=== PATIENT | female | born 1985 ===

== ENCOUNTER 2022-07-04 20:14 | Inpatient (IN) ==
[2022-07-04] MEDS ORDERED: miSOPROStoL 25 MCG TABLET PO PRN (21:43)
[2022-07-04] MEDS ORDERED: Oxytocin 30 UNIT/503 ML BAG IVC SCH (21:45)
[2022-07-04] MEDS ORDERED: Naloxone 0.4 MG/ML INJ IVP PRN (22:06)
[2022-07-04] MEDS ORDERED: Metoclopramide 10 MG/2 ML VIAL IVP PRN (22:06)
[2022-07-04] MEDS ORDERED: Azithromycin 500 MG in 0.9 % Sodium Chloride 250 ML IVPB PRN (22:06)
[2022-07-04] MEDS ORDERED: Ondansetron 4 MG/2 ML VIAL IVP PRN (22:06)
[2022-07-04] MEDS ORDERED: Famotidine 20 MG/2 ML VIAL IVP PRN (22:06)
[2022-07-04] MEDS ORDERED: Ringers Solution, Lactated 1,000 ML IVC SCH (22:15)
[2022-07-04 22:36] LABS: Basophils % 0.4 %; Eosinophils # 0.2 K/mcL (0.0-0.6); Eosinophils % 1.9 %; Hematocrit 37.3 % (35.3-44.9); Hemoglobin 12.7 g/dL (11.5-15.4); Immature Granulocytes % 0.8 % (0-4); Lymphocytes # 2.3 K/mcL (0.6-4.6); Mean Corpuscular Hemoglobin 33.3 pg (28.0-33.3); Mean Corpuscular Volume 97.9 fL (83.0-100.0); Mean Platelet Volume 9.5 fL (9.4-12.4); Monocytes # 0.6 K/mcL (0.0-1.3); Monocytes % 5.1 %; Neutrophils # 7.7 K/mcL (1.6-8.9); Platelet Count 304 K/mcL (140-400); Red Blood Count 3.81 M/mcL (3.82-4.97); Red Cell Distribution Width 13.1 % (11.5-14.5); Segmented Neutrophils % 70.8 %; White Blood Count 10.9 K/mcL (4.3-11.1)
[2022-07-04] MEDS ORDERED: Nicotine 21 MG PATCH.TD24 TD SCH (22:45)
[2022-07-04 23:17] LABS: Amphetamine Screen,Urine Negative ng/mL (Cutoff=1000); Barbiturate Screen,Urine Negative ng/mL (Cutoff=200); Benzodiazepines Screen,Urine Negative ng/mL (Cutoff=200); Cannabinoid Screen,Urine Negative ng/mL (Cutoff = 50); Cocaine Screen,Urine Negative ng/mL (Cutoff= 300); Opiate Screen,Urine Negative ng/mL (Cutoff=300); Phencyclidine Screen,Urine Negative ng/mL (Cutoff=25)
[2022-07-05] MEDS ORDERED: EPHEDrine 50 MG/ML VIAL IVP PRN (05:50)
[2022-07-05] MEDS ORDERED: Ropivacaine/PF 0.2% 20 ML VIAL EP ONE (05:50)
[2022-07-05] MEDS ORDERED: *HR* FentaNYL (PF) 100 MCG/2 ML VIAL EP ONE (05:50)
[2022-07-05] MEDS ORDERED: Ropivacaine/PF 0.2% 20 ML VIAL ONE (05:53)
[2022-07-05] MEDS ORDERED: *HR* FentaNYL (PF) 100 MCG/2 ML VIAL ONE (05:53)
[2022-07-05] MEDS ORDERED: Epidural Premix (fent/bupiv) 110 ML EP ONE (05:55)
[2022-07-05] MEDS ORDERED: Epidural Premix (fent/bupiv) 110 ML EP SCH (06:00)
[2022-07-05] MEDS ORDERED: Azithromycin 500 MG in 0.9 % Sodium Chloride 250 ML IVPB PRN (09:00)
[2022-07-05] MEDS ORDERED: CeFAZolin 2,000 MG/120 ML BAG IVPB ONE (09:00)
[2022-07-05] MEDS ORDERED: Ondansetron 4 MG/2 ML VIAL ONE (09:16)
[2022-07-05] MEDS ORDERED: Ketorolac 30 MG/ML VIAL ONE (09:32)
[2022-07-05] MEDS ORDERED: *HR* Morphine Sulfate/PF 10 MG/10 ML AMPUL ONE (09:39)
[2022-07-05] MEDS ORDERED: EPHEDrine 50 MG/ML VIAL ONE (09:59)
[2022-07-05] MEDS ORDERED: Acetaminophen IV 1,000 MG/100 ML BAG IVPB ONE (10:00)
[2022-07-05] MEDS ORDERED: Simethicone 80 MG TAB.CHEW PO PRN (12:12)
[2022-07-05] MEDS ORDERED: Rho Immune Globulin 1,500 UNIT SYRINGE IM ONE (12:12)
[2022-07-05] MEDS ORDERED: Metoclopramide 10 MG/2 ML VIAL IVP PRN (12:12)
[2022-07-05] MEDS ORDERED: OXYTOCIN/RINGERS LACTATE 10 UNIT/166.6 ML BAG IVC ONE (12:12)
[2022-07-05] MEDS ORDERED: Ondansetron 4 MG/2 ML VIAL IVP PRN (12:12)
[2022-07-05] MEDS ORDERED: *HR* OxyCODONE Immed Rel 5 MG TABLET PO PRN (12:12)
[2022-07-05] MEDS ORDERED: Ringers Solution, Lactated 1,000 ML IVC SCH (12:12)
[2022-07-05] MEDS: SUBOXONE SL SCH (13:33)
[2022-07-05] MEDS: cephALEXin 500 MG CAPSULE PO SCH ×2 (15:52→22:00)
[2022-07-05] MEDS: Ibuprofen 600 MG TABLET PO SCH ×2 (15:52→22:00)
[2022-07-05] MEDS: Acetaminophen 325 MG TABLET PO SCH (18:04)
[2022-07-05] MEDS: Nicotine 21 MG PATCH.TD24 TD SCH (22:18)
[2022-07-06 04:52] LABS: Basophils % 0.2 %; Eosinophils # 0.1 K/mcL (0.0-0.6); Eosinophils % 0.5 %; Hematocrit 28.3 % (35.3-44.9); Hemoglobin 9.5 g/dL (11.5-15.4); Immature Granulocytes % 0.9 % (0-4); Lymphocytes # 2.3 K/mcL (0.6-4.6); Lymphocytes % 13.2 %; Mean Corpuscular HGB Conc 33.6 g/dL (31.6-35.5); Mean Corpuscular Hemoglobin 32.6 pg (28.0-33.3); Mean Corpuscular Volume 97.3 fL (83.0-100.0); Mean Platelet Volume 9.7 fL (9.4-12.4); Monocytes % 5.8 %; Neutrophils # 13.6 K/mcL (1.6-8.9); Platelet Count 262 K/mcL (140-400); Red Blood Count 2.91 M/mcL (3.82-4.97); Segmented Neutrophils % 79.4 %; White Blood Count 17.1 K/mcL (4.3-11.1)
[2022-07-06] MEDS: Ibuprofen 600 MG TABLET PO SCH ×4 (06:11→19:51)
[2022-07-06] MEDS: Acetaminophen 325 MG TABLET PO SCH ×3 (06:11→15:40)
[2022-07-06] MEDS ORDERED: NON-FORMULARY MEDICATION 1 EACH EACH (Prenatal Vits96/Iron Fum/Folic [Prenatal Tablet] 1 E PO SCH (09:00)
[2022-07-06] MEDS ORDERED: BUPRENORPHINE HCL PO SCH (09:00)
[2022-07-06] MEDS ORDERED: NALOXONE HCL PO SCH (09:00)
[2022-07-06] MEDS ORDERED: [UNRECOGNIZED DRUG - OTHER] PO SCH (09:00)
[2022-07-06] MEDS: cephALEXin 500 MG CAPSULE PO SCH ×3 (09:35→19:51)
[2022-07-06] MEDS: Prenatal Vit/FA 1 EACH TABLET PO SCH (09:35)
[2022-07-06] MEDS: SUBOXONE SL SCH (09:42)
[2022-07-06] MEDS ORDERED: Lanolin 7 G OINT...G. TP PRN (12:55)
[2022-07-07] MEDS: Nicotine 21 MG PATCH.TD24 TD SCH ×2 (04:44→09:57)
[2022-07-07] MEDS: Acetaminophen 325 MG TABLET PO SCH ×3 (04:47→11:18)
[2022-07-07] MEDS: Ibuprofen 600 MG TABLET PO SCH ×2 (04:47→11:18)
[2022-07-07 07:09] VITALS: BP 100/63; PULSE 78; TEMP 97.9; O2SAT 97
[2022-07-07] MEDS: cephALEXin 500 MG CAPSULE PO SCH (09:56)
[2022-07-07] MEDS: Prenatal Vit/FA 1 EACH TABLET PO SCH (09:56)
[2022-07-07] MEDS: SUBOXONE SL SCH (09:58)
== END 2022-07-07 11:29 | disposition home or self-care (01) | DRG 540 ==
LOC: 1NENULAB 20:14 → 1NENUOBS 07-05 12:22
PROVIDERS: ADMIT Obstetrics & Gynecology; ATTEND Obstetrics & Gynecology